=== PATIENT | female | born 1965 | race Two or more races ===

== ENCOUNTER → 2024-06-17 | Outpatient (CLI) | payer MEDICAID, SELFPAY ==
--- NOTE | 2024-06-17 09:30 | XR_ITS ---
Examination: MRI lumbar spine without contrast Date and time of exam: 2024 1043 hours INDICATIONS: Low back pain radiating to both legs, weakness in both legs 30 years COMPARISON: May 22, 2013 Technique: Multiple MRI axial and sagittal sections lumbar spine. Sagittal T2-weighted images, TR 3500, TE 118 T1 weighted transverse sections, TR 688 T8.5, T2-weighted sagittal sections T1 weighted sagittal sections TR 621, TE 30 T2 axial sections, TR 4, 190, TE 84. Findings: Adequate alignment lumbar vertebral bodies on the lateral view No lumbar fracture Diffuse lumbar disc desiccation Adequate marrow signal lumbar vertebral bodies L5-S1 2 mm central lumbar disc bulge L4-L5 no disc protrusion L3-L4 no disc protrusion L2-L3 no disc protrusion L1-L2 no disc protrusion IMPRESSION: Satisfactory alignment lumbar vertebral bodies No lumbar fracture No significant acquired spinal stenosis
== END | disposition home or self-care (01) ==
PROVIDERS: PCP Physician Assistant; Referring Provider Physician Assistant; Visit Provider Physician Assistant
DX: M47.817 Spondylosis without myelopathy or radiculopathy, lumbosacral region (principal)
CPT/HCPCS: 72148